=== PATIENT | male | born 1990 | race Caucasian/White ===

== ENCOUNTER 2016-08-16 09:09 | Emergency (ER) | payer BC, OTHER ==
[2016-08-16 09:15] VITALS: O2SAT 99
[2016-08-16] MEDS ORDERED: LORazepam 2 MG/ML INJ IVP ONE ×2 (09:39→10:15)
[2016-08-16] MEDS ORDERED: ONDANSETRON 4 MG/2 ML VIAL IVP ONE (09:39)
[2016-08-16] MEDS ORDERED: NS 1,000 ML IV ONE (09:39)
--- NOTE | 2016-08-16 09:43 | EDPHY ---
H & P Stated Complaint: PANIC ATTACK Time Seen by Provider: 08/16/16 09:18 HPI/ROS: CHIEF COMPLAINT: Anxiety, vomiting HISTORY OF PRESENT ILLNESS: The patient is a 26-year-old man who comes to the emergency department complaining of anxiety and now vomiting. He states that this happens to him approximately 4 times a year when he becomes severely anxious and then it triggers cyclic vomiting. He does not know why. He does smoke marijuana daily. He states that warm bath typically make him feel better. Or hot shower. He denies abdominal pain or tenderness. No fever. Headache or head trauma. No recent fevers or infections. REVIEW OF SYSTEMS: Constitutional: denies: chills, fever, recent illness, recent injury EENTM: denies: blurred vision, double vision, nose congestion Respiratory: denies: cough, shortness of breath Cardiac: denies: chest pain, irregular heart rate, lightheadedness, palpitations Gastrointestinal/Abdominal: See HPI Genitourinary: denies: dysuria, frequency, hematuria, pain Musculoskeletal: denies: joint pain, muscle pain Skin: denies: lesions, rash, jaundice, bruising Neurological: denies: headache, numbness, paresthesia, tingling, dizziness, weakness Hematologic/Lymphatic: denies: blood clots, easy bleeding, easy bruising Immunologic/allergic: denies: HIV/AIDS, transplant EXAM: GENERAL: Well-appearing, well-nourished and in no acute distress. HEAD: Atraumatic, normocephalic. EYES: Pupils equal round and reactive to light, extraocular movements intact, sclera anicteric, conjunctiva are normal. ENT: TMs normal, nares patent, oropharynx clear without exudates. Moist mucous membranes. NECK: Normal range of motion, supple without lymphadenopathy or JVD. LUNGS: Breath sounds clear to auscultation bilaterally and equal. No wheezes rales or rhonchi. HEART: Regular rate and rhythm without murmurs, rubs or gallops. ABDOMEN: Soft, nontender, normoactive bowel sounds. No guarding, no rebound. No masses appreciated. BACK: No CVA tenderness, no spinal tenderness, step-offs or deformities EXTREMITIES: Normal range of motion, no pitting or edema. No clubbing or cyanosis. NEUROLOGICAL: Cranial nerves II through XII grossly intact. Normal speech, normal gait. 5/5 strength, normal movement in all extremities, normal sensation PSYCH: anxious, pacing, diaphoretic SKIN: Warm, dry, normal turgor, no visible rashes or lesions. Source: Patient Exam Limitations: No limitations - Personal History Current Tetanus/Diphtheria Vaccine: Yes Current Tetanus Diphtheria and Acellular Pertussis (TDAP): Yes - Medical/Surgical History Hx Asthma: No Hx Chronic Respiratory Disease: No Hx Diabetes: No Hx Cardiac Disease: No Hx Renal Disease: No Hx Cirrhosis: No Hx Alcoholism: No Hx HIV/AIDS: No Hx Splenectomy or Spleen Trauma: No Other PMH: PMH- ANXIETY, CYCLICAL VOMITING - Family History Significant Family History: No pertinent family hx - Social History Smoking Status: Never smoked Alcohol Use: Sober Drug Use: None Constitutional: Initial Vital Signs Temperature (C) 36.4 C 08/16/16 09:12 Heart Rate 72 08/16/16 09:12 Respiratory Rate 26 H 08/16/16 09:12 Blood Pressure 140/105 H 08/16/16 09:12 O2 Sat (%) 99 08/16/16 09:12 O2 Delivery Mode Room Air Allergies/Adverse Reactions: No Known Allergies Allergy (Verified 08/16/16 23:25) Home Medications: Medication Instructions Recorded Lexapro 08/16/16 Ondansetron Odt [Zofran Odt 4 mg 4 mg PO Q4 PRN #20 tab 08/16/16 (RX)] Lorazepam [Ativan] 0.5 mg PO BID #5 tablet 08/17/16 Medical Decision Making ED Course/Re-evaluation: 10:20 a.m. the patient is feeling better but still anxious and pacing. I will treat with more Ativan. No more vomiting. 12:00 p.m. the patient is feeling much better and is eager to go. He declines further workup or testing at this time. We discussed decreasing cannabis use. He agrees. We discussed indications for returning. Differential Diagnosis: Partial list of the Differential diagnosis considered include but were not limited to; high cannabis hyperemesis, anxiety, cyclic vomiting and although unlikely based on the history and physical exam, I also considered appendicitis , diverticulitis, kidney stone, urinary tract infection, obstruction, ischemia, volvulus. I discussed these differential diagnoses and the plan with the patient as well as the usual and expected course. The patient understands that the diagnosis is provisional and that in medicine we are not always correct and that further workup is often warranted. Usual and customary warnings were given. All of the patient's questions were answered. The patient was instructed to return to the emergency department should the symptoms at all worsen or return, otherwise to followup with the physician as we discussed. - Data Points Medications Given: Discontinued Medications Diphenhydramine HCl (Benadryl Injection) 25 mg IVP EDNOW ONE Stop: 08/16/16 09:40 Last Admin: 08/16/16 10:03 Dose: 25 mg Sodium Chloride (Ns) 1,000 mls @ 0 mls/hr IV ONCE ONE PRN Reason: Wide Open Stop: 08/16/16 09:40 Last Admin: 08/16/16 10:03 Dose: 1,000 mls Lorazepam (Ativan Injection) 2 mg IVP EDNOW ONE Stop: 08/16/16 09:40 Last Admin: 08/16/16 10:03 Dose: 2 mg Lorazepam (Ativan Injection) 1 mg IVP EDNOW ONE Stop: 08/16/16 10:16 Last Admin: 08/16/16 10:30 Dose: 1 mg Ondansetron HCl (Zofran) 4 mg IVP EDNOW ONE Stop: 08/16/16 09:40 Last Admin: 08/16/16 10:04 Dose: 4 mg Departure - Departure Disposition: Home, Routine, Self-Care Clinical Impression: Anxiety, Cannabis abuse Cyclical vomiting Qualifiers: Vomiting Intractability: non-intractable Nausea presence: with nausea Qualified Code(s): G43.A0 - Cyclical vomiting, not intractable Condition: Fair Instructions: Acute Nausea and Vomiting (ED), Cannabis Abuse (ED), Anxiety (ED ) Referrals: Yamileth Da Silva MD [Medical Doctor] - As per Instructions Prescriptions: Ondansetron Odt [Zofran Odt 4 mg (RX)] 4 mg PO Q4 PRN #20 tab PRN Reason: Nausea & Vomiting
[2016-08-16 12:11] VITALS: BP 115/86; PULSE 68; RESP 18; TEMP 98.1
== END 2016-08-16 12:25 | disposition home or self-care (01) ==
DX: F41.9 Anxiety disorder, unspecified (principal); F12.10 Cannabis abuse, uncomplicated; G43.A0 Cyclical vomiting, in migraine, not intractable
CPT/HCPCS: 96374; J1200; J2060; J2405

== ENCOUNTER 2016-08-16 23:20 | Emergency (ER) | payer BC ==
[2016-08-16] MEDS ORDERED: NS 1,000 ML IV ONE ×2 (23:36)
[2016-08-16] MEDS ORDERED: HALOPERIDOL LACT 5 MG/ML INJ IVP ONE (23:37)
[2016-08-16 23:49] LABS: % IMMATURE GRANULYOCYTES 0.2 % (0.0-1.1); ABSOLUTE IMMATURE GRANULOCYTES 0.02 10^3/uL (0.00-0.10); ADD DIFF? NO; ADD MORPH? NO; ADD SCAN? NO; ATYPICAL LYMPHOCYTE FLAG 20 (0-99); FRAGMENT RBC FLAG 0 (0-99); HEMATOCRIT 43.9 % (40.0-51.0); HEMOGLOBIN 15.6 g/dL (13.7-17.5); LEFT SHIFT FLG 0 (0-99); LIPEMIA HEMOLYSIS FLAG 90 (0-99); MEAN CELL HEMOGLOBIN 30.2 pg (27.9-34.1); MEAN CELL HEMOGLOBIN CONCENTR. 35.5 g/dL (32.4-36.7); MEAN CELL VOLUME 85.1 fL (81.5-99.8); MEAN PLATELET VOLUME 10.9 fL (8.7-11.7); PLATELET CLUMPS FLAG 0 (0-99); PLATELET COUNT 237 10^3/uL (150-400); RED BLOOD CELL COUNT 5.16 10^6/uL (4.40-6.38); RED CELL DISTRIBUTION WIDTH 11.9 % (11.5-15.2)
[2016-08-17 00:30] LABS: ALANINE AMINOTRANSFERASE 32 IU/L (21-72); ALKALINE PHOSPHATASE 76 IU/L (38-126); ANION GAP 15 mEq/L (8-16); ASPARTATE AMINOTRANSFERASE 27 IU/L (17-59); BILIRUBIN-CONJUGATED 0.4 mg/dL (0.0-0.5); BILIRUBIN-UNCONJUGATED 0.6 mg/dL (0.0-1.1); CALCIUM 10.3 mg/dL (8.5-10.4); CARBON DIOXIDE 22 mEq/l (22-31); CHLORIDE 107 mEq/L (97-110); CREATININE 0.9 mg/dL (0.7-1.3); GLOMERULAR FILTRATION RATE > 60; GLUCOSE 140 mg/dL (70-100); POTASSIUM 3.9 mEq/L (3.5-5.2); SODIUM 144 mEq/L (134-144); TOTAL PROTEIN 7.9 g/dL (6.3-8.2)
--- NOTE | 2016-08-17 01:05 | EDPHY ---
H & P Stated Complaint: CYCLIC VOMITING, VOMITED X 5 PAST HOUR, ANXIETY, SEEN TODAY - Medical/Surgical History Hx Asthma: No Hx Chronic Respiratory Disease: No Hx Diabetes: No Hx Cardiac Disease: No Hx Renal Disease: No Hx Cirrhosis: No Hx Alcoholism: No Hx HIV/AIDS: No Hx Splenectomy or Spleen Trauma: No Other PMH: PMH- ANXIETY, CYCLICAL VOMITING - Social History Smoking Status: Never smoked HPI/ROS: Chief complaint: Anxiety, vomiting History of present illness: This is a 26-year-old male who presents to the emergency department for anxiety and vomiting. Patient reports he has a history of recurrent anxiety. He states a few times a year he will become very anxious , this will cause him to have an upset stomach and he will start vomiting. He denies precipitating factors. He denies other associated signs or symptoms including no fevers, no diarrhea or constipation, no urinary symptoms. He does smoke marijuana regularly. This is typical for him. He was seen in this emergency room earlier today for similar. Review of systems: A 10 point review of systems was obtained and other than described above was negative (Keith Mariee) - Physical Exam Exam: General Appearance: Alert, nontoxic. Eyes: Pupils equal and round no pallor or injection. ENT, Mouth: Mucous membranes moist. Respiratory: There are no retractions, lungs are clear to auscultation. Cardiovascular: Regular rate and rhythm. Gastrointestinal: Abdomen is soft and non tender, no masses, bowel sounds normal. Neurological: Alert and oriented x4. Strength and sensation intact and symmetrical. Skin: Warm and dry, no rashes. Musculoskeletal: Neck is supple non tender. Extremities are symmetrical, full range of motion. Psychiatric: Patient is oriented X 3, there is no agitation. (Keith Mariee) Constitutional: Initial Vital Signs Temperature (C) 36.7 C 08/16/16 23:24 Heart Rate 90 08/16/16 23:24 Respiratory Rate 24 H 08/16/16 23:24 Blood Pressure 160/98 H 08/16/16 23:24 O2 Sat (%) 97 08/16/16 23:24 O2 Delivery Mode Room Air Allergies/Adverse Reactions: No Known Allergies Allergy (Verified 08/16/16 23:25) Home Medications: Medication Instructions Recorded Lexapro 08/16/16 Ondansetron Odt [Zofran Odt 4 mg 4 mg PO Q4 PRN #20 tab 08/16/16 (RX)] Lorazepam [Ativan] 0.5 mg PO BID #5 tablet 08/17/16 Medical Decision Making ED Course/Re-evaluation: Patient seen under the supervision of my secondary supervising physician Dr. Yudy De Los Santos. Patient presents to the emergency department for anxiety with an upset stomach causing vomiting. He has a history of similar. On presentation he is nontoxic. Physical exam is unremarkable including abdominal exam which is benign. Serial abdominal exams performed and remain benign. Blood studies unremarkable. Urine dip does show some blood in it of unclear etiology. Patient is treated with Haldol and Benadryl. Prior to finishing workup patient was asking to be discharged from the emergency room. He was well -appearing. He was discharged home. He did ask for short course of antianxiety medicine, this was provided. He was asked to follow up with his primary care doctor when he returns home to [place] for recheck as well as follow-up on the blood in his urine. Home care is discussed. Return precautions are given. Patient voiced understanding and agreement with plan. ( Keith Mariee) Differential Diagnosis: Chief complaint: Anxiety, cyclic vomiting syndrome, gastritis, gastroenteritis , biliary tract disease, pancreatitis (Keith Mariee) Other Provider: PHYSICIAN DOCUMENTATION: The patient was evaluated and managed by the Physician Veterinary Receptionist. My co- signature indicates that I have reviewed this chart and I agree with the findings and plan of care as documented. I am the secondary supervising physician. (Yudy De Los Santos) - Data Points Laboratory Results: Laboratory Results 08/16/16 23:41 08/16/16 23:41 Medications Given: Discontinued Medications Diphenhydramine HCl (Benadryl Injection) 25 mg IVP EDNOW ONE Stop: 08/16/16 23:38 Last Admin: 08/16/16 23:56 Dose: 25 mg Haloperidol Lactate (Haldol Injection) 5 mg IVP EDNOW ONE Stop: 08/16/16 23:38 Last Admin: 08/16/16 23:57 Dose: 5 mg Sodium Chloride (Ns) 1,000 mls @ 0 mls/hr IV ONCE ONE PRN Reason: Wide Open Stop: 08/16/16 23:37 Last Admin: 08/16/16 23:56 Dose: 1,000 mls Sodium Chloride (Ns) 1,000 mls @ 0 mls/hr IV ONCE ONE PRN Reason: Wide Open Stop: 08/16/16 23:37 Last Admin: 08/16/16 23:56 Dose: 1,000 mls Departure - Departure Disposition: Home, Routine, Self-Care Clinical Impression: Vomiting Condition: Good Instructions: Acute Nausea and Vomiting (ED) Additional Instructions: Follow-up with a primary care doctor when you return home Please have your primary care doctor recheck blood in your urine If symptoms worsen or new symptoms develop return to the emergency room for recheck Referrals: NONE *PRIMARY CARE P,. [Primary Care Provider] - As per Instructions Prescriptions: Lorazepam [Ativan] 0.5 mg PO BID #5 tablet
[2016-08-17 01:45] VITALS: BP 110/79; PULSE 65; RESP 16; TEMP 98.6; O2SAT 96
== END 2016-08-17 01:45 | disposition home or self-care (01) ==
DX: R11.10 Vomiting, unspecified (principal)
CPT/HCPCS: 96374; J1200